=== PATIENT | male | born 1985 | race Caucasian/White ===

== ENCOUNTER 2016-07-17 07:42 | Day surgery (SDC) | payer OTHER ==
[2016-07-14 17:29] VITALS: BMI 29.1
[2016-07-17] VITALS (14 sets, daily range): BP systolic 113–128; BP diastolic 70–87; PULSE 48–74; RESP 15–22; Ht 185.4 cm; Wt 103.8 kg
[~2016-07-17] VITALS: Ht 185.4 cm; Wt 103.8 kg
[~2016-07-17 07:42] MED LIST: SUCCINYLCHOLINE CHLORIDE 100 MG/5 ML SYG IV ONE
[2016-07-17] MEDS ORDERED: PROPOFOL 20 ML ONE (08:12)
[2016-07-17] MEDS ORDERED: LIDOCAINE 2% (SDV) 5 ML INJ ONE (08:12)
[2016-07-17] MEDS ORDERED: FENTAnyl 50 MCG/ML VIAL ONE (08:12)
[2016-07-17] MEDS ORDERED: GLYCOPYRROLATE 0.4 MG INJ ONE (08:12)
[2016-07-17] MEDS ORDERED: ROCURONIUM 50 MG INJ ONE (08:12)
[2016-07-17] MEDS ORDERED: NEOSTIGMINE 3 MG/3 ML SYRINGE ONE (08:12)
[2016-07-17] MEDS ORDERED: MIDAZOLAM 1 MG/ML 2 ML INJ ONE (08:12)
[2016-07-17] MEDS ORDERED: ROPIVACAINE 0.5 % 30 ML VIAL ONE ×2 (08:14→10:05)
[2016-07-17] MEDS ORDERED: LIDOCAINE 2%/EPI 30 ML INJ ONE (08:15)
[2016-07-17] MEDS ORDERED: ONDANSETRON 4 MG INJ ONE ×2 (08:30→09:56)
--- NOTE | 2016-07-17 09:03 | HPN ---
Date/Time of Note Date/Time of Note DATE: 07/17/16 TIME: 09:02 Interval H&P Admission Note Pt. seen H&P reviewed: No system changes SARIAH CANTOR MD Jul 17, 2016 09:02
[2016-07-17] MEDS ORDERED: VANCOMYCIN 1 GM (PMX) 250 ML ONE (09:13)
[2016-07-17] MEDS ORDERED: DEXAMETHASONE 4 MG/ML 1 ML INJ ONE (09:55)
[2016-07-17] MEDS ORDERED: VANCOMYCIN 1 GM (PMX) 250 ML IVPB SCH (10:00)
[2016-07-17] MEDS ORDERED: ATROPINE 1 MG/10 ML SYRINGE ONE (10:28)
[2016-07-17] MEDS ORDERED: BACITRACIN/POLYMYXIN 28.35 GM OINT TOP ONE (11:16)
[2016-07-17] MEDS ORDERED: morphine 10 MG INJ IV PRN (12:00)
[2016-07-17] MEDS ORDERED: morphine 2 MG INJ IV PRN (12:00)
--- NOTE | 2016-07-17 12:00 | OPR ---
Date/Time of Note Date/Time of Note DATE: 07/17/16 TIME: 11:51 Operative Report Free Text/Dictation Preoperative Diagnosis 1. Right ankle Anterior synovitis 2. Right ankle anterolateral impingement syndrome Postoperative Diagnosis 1. Right ankle anterior synovitis 2. Right ankle tibia plafond chondral defect 3. Right ankle anterolateral impingement syndrome Operation Performed 1. Right ankle arthroscopy with extensive debridement 2. Right ankle chondroplasty 3. Right Ankle Application of PRP to the Ankle, ([place]) 4. Short leg cast. 6. Use of fluoroscopy Surgeon: SARIAH CANTOR MD Anesthesia: general, other (Regional block), local Estimated Blood Loss: none Complications: None Pt Condition Post Procedure: stable Disposition: PACU Tourniquet Time: 52 min at 250 mm Hg Indications: Patient is a 31 yo male s/p multiple ankle sprains over the past several years with MRI showing significant anterior ankle gutter debris with soft tissue impingement and synovitis with significant pain over the anterior and lateral aspect of the ankle. Patient doesn't current have any instability. Patient failed PT and injection nonop management and was indicated for surgery Procedure Description: The correct operative site was noted and marked in the preoperative holding area and confirmed with patient. The patient was then brought back into the operative theater, placed supine on the operative table and then then given preoperative regional block anesthesia. A satisfactory popliteal block was given and satisfactory general anesthesia was administered. Preop Antibiotics were given intravenously. Tourniquet placed on the operative extremity thigh non-sterilely. The right thigh was secured on a thigh cox and all areas were carefully padded. The superficial peroneal nerve branch was marked out. Patient was then prepped and draped in normal sterile fashion. A timeout was taken and all parties in the room agreed it was the correct patient, correct extremity and correct procedure. Standard anteromedial, anterolateral and posterolateral portals were used, using extreme caution to avoid injury to the neurovascular structures. The arthroscope was inserted. There was a lot of synovitis in the anterior lateral malleolar talar articulation and gutter, distal tibia and the posterior gutter. Mild synovitis anteriorly. The articular surfaces were smooth and glistening anteriorly, centrally and posteriorly with areas along the talar dome of chondral fraying. An extensive amount of synovitis in the anterior and posterior ankle and hemorrhagic posterolateral synovial nodule were noted and once a shaver was inserted, the posterior and lateral gutter was debrided. 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 Loose pieces of cartilage were shave and removed with a grasper. The lateral gutter and syndesmosis were debrided as was the anterior gutter. The posterior gutter was then debrided and posterolaterally the area was debrided as well. After complete debridement, the ankle joint was irrigated clear. The wound was irrigated with antibiotic solution repeatedly. The skin was closed with #4-0 black nylon. PRP that had been spun down in Protalex Machine and was injected into the ankle joint A compression dressing was applied, as well as a well padded with 5 ABDs, 4 SoftRoll and short leg splint in neutral position. The patient tolerated the procedure well and was taken to the recovery room in stable condition. At the end of the procedure, the sponge and needle count was correct. Procedure Date: Jul 17, 2016 SARIAH CANTOR MD Jul 17, 2016 12:00
== END 2016-07-17 14:25 | disposition home or self-care (01) ==
LOC: SDS 07:42
PROVIDERS: ATTEND Orthopaedic Surgery
DX: M25.871 Other specified joint disorders, right ankle and foot (principal); M65.871 Other synovitis and tenosynovitis, right ankle and foot
CPT/HCPCS: 29898; C1713; J0330; J0461; J1100; J2250; J2405; J2710; J2795; J3010; J3370; Z7512; Z7610

== ENCOUNTER 2017-09-13 12:34 | Emergency (ER) | END 2017-09-13 15:14 | disposition home or self-care (01) ==